=== PATIENT | male | born 1965 | race Caucasian/White ===

== ENCOUNTER → 2018-05-31 16:02 | Emergency (ER) | payer OTHER ==
[~2018-05-31 16:02] MED LIST: Cephalexin CAP* 500 MG PO ONE; HYDROcodone/ACETAMIN 5-325 MG* 1 TAB PO ONE; Ondansetron ODT TAB* 4 MG ONE; Ondansetron ODT TAB* 4 MG PO ONE
--- NOTE | 2018-05-31 18:38 | ED ---
Upper Extremity Pain - HPI Summary HPI Summary: Patient complains of pain, swelling and lacerations to right hand after dropping automotive transmission on it today. Denies any other pain, injury, symptoms. Tetanus status updated 3 years ago with prior hand injury. History of multiple surgeries on right hand with limited use of fingers of right hand. No anti-coagulant. - History of Current Complaint Chief Complaint: EDLacSutureRecheck Stated Complaint: RIGHT HAND LACERATION/SMASHED Time Seen by Provider: 05/31/18 17:37 Hx Obtained From: Patient Mechanism Of Injury: Blunt Trauma Onset/Duration: Started Hours Ago Timing: Constant Severity Initially: Moderate Severity Currently: Moderate Pain Location: Hand, Finger Character: Aching, Throbbing Aggravating Factor(s): Movement Alleviating Factor(s): Rest, Ice Associated Signs & Symptoms: Positive: Swelling - Allergies/Home Medications Allergies/Adverse Reactions: Allergies Allergy/AdvReac Type Severity Reaction Status Date / Time MS Oxycodone [From Oxycontin] Allergy Severe GI Upset, Verified 12/25/15 08:04 SYNCOPE PMH/Surg Hx/FS Hx/Imm Hx Endocrine/Hematology History: Denies: Hx Anticoagulant Therapy GI History: Denies: Hx Jaundice History: Reports: Other Problems/Disorders - 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 Denies: Hx Dialysis Musculoskeletal History: Reports: Other Musculoskeletal History - 2007 BACK SURGERY 3 DISC Sensory History: Reports: Hx Contacts or Glasses - READING GLASSES, Hx Glaucoma - STATES RARE FORM LEFT EYE- NO TREATMENT Denies: Hx Hearing Aid Opthamlomology History: Reports: Hx Contacts or Glasses - READING GLASSES, Hx Glaucoma - STATES RARE FORM LEFT EYE- NO TREATMENT EENT History: Denies: Hx Deafness Neurological History: Denies: Hx Developmental Delay Psychiatric History: Denies: Hx Eating Disorder - Surgical History Surgery Procedure, Year, and Place: 2010 LEFT NEPHRECTOMY (DONATION), STRONG. 2007 BACK SURGERY 3 DISC LUMBAR, WIL. 09/2015 RIGHT HAND SURGERY- [facility] Hx Anesthesia Reactions: No Infectious Disease History: No Infectious Disease History: Denies: Traveled Outside the [place] in Last 30 Days - Family History Known Family History: Positive: Non-Contributory - Social History Occupation: Employed Full-time Alcohol Use: Rare Substance Use Type: Reports: None Smoking Status (MU): Light Every Day Tobacco Smoker Type: Cigars Amount Used/How Often: QUIT CIGARETTES - 1988, BUT STARTING SMOKING CIGARS 2013 Length of Time of Smoking/Using Tobacco: APPROX 21 YEARS FOR CIGARETTES, 2 YEARS FOR CIGARS Have You Smoked in the Last Year: Yes Review of Systems Constitutional: Negative Eyes: Negative ENT: Negative Cardiovascular: Negative Respiratory: Negative Gastrointestinal: Negative Genitourinary: Negative Musculoskeletal: Other Skin: Other Neurological: Negative Psychological: Normal All Other Systems Reviewed And Are Negative: Yes Physical Exam - Summary Physical Exam Summary: Lacerations to proximal portions of proximal phalanx of fourth and fifth digit of right hand. Swelling over the proximal phalanx of third digit and MCP joint of right hand. Extension and flexion intact at each individual joint of all fingers except third digit. Patient has history of surgery on third digit with very limited flexion and extension at each individual joint prior to today's injury. Cap refill immediate on all fingers. Sensation intact. No obvious deformity, erythema, extra warmth noted. Triage Information Reviewed: Yes Vital Signs On Initial Exam: Initial Vitals Temp Pulse Resp BP Pulse Ox 98.6 F 86 18 121/82 97 05/31/18 16:19 05/31/18 16:19 05/31/18 16:19 05/31/18 16:19 05/31/18 16:19 Vital Signs Reviewed: Yes Appearance: Positive: Well-Appearing Skin: Positive: Warm Head/Face: Positive: Normal Head/Face Inspection Eyes: Positive: Normal Neck: Positive: Supple Respiratory/Lung Sounds: Positive: Clear to Auscultation Cardiovascular: Positive: Normal Abdomen Description: Positive: Nontender Musculoskeletal: Positive: Normal Neurological: Positive: Normal Psychiatric: Positive: Normal AVPU Assessment: Alert - [place] Coma Scale Best Eye Response: 4 - Spontaneous Best Motor Response: 6 - Obeys Commands Best Verbal Response: 5 - Oriented Coma Scale Total: 15 Procedures - Laceration/Wound Repair 1 Location: upper extremity Description: Linear Anesthesia: Digital, 2.0%, Lido Length, Depth and Shape: 2cm x .5cm Betadine Prep?: Yes Irrigated w/ Saline (ccs): 500 Laceration/Wound Explored: clean Debridement: minimal Number of Sutures: 3 - 4.0 ethilon Layer Closure?: No Sterile Dressing Applied?: No 2 Location: upper extremity Description: Linear Anesthesia: Digital, 2.0%, Lido Length, Depth and Shape: 2cm x .5cm Betadine Prep?: Yes Irrigated w/ Saline (ccs): 300 Laceration/Wound Explored: clean Debridement: minimal Number of Sutures: 2 - 4.0 ethilon Layer Closure?: No Sterile Dressing Applied?: No Diagnostics - Vital Signs Vital Signs Temp Pulse Resp BP Pulse Ox 05/31/18 16:19 98.6 F 86 18 121/82 97 - Laboratory Lab Statement: Any lab studies that have been ordered have been reviewed, and results considered in the medical decision making process. Course/Dx - Course Course Of Treatment: Patient complains of pain, swelling and lacerations to right hand after dropping automotive transmission on it today. Denies any other pain, injury, symptoms. Tetanus status updated 3 years ago with prior hand injury. History of multiple surgeries on right hand with limited use of fingers of right hand. No anti-coagulant. Physical exam:Lacerations to proximal portions of proximal phalanx of fourth and fifth digit of right hand. Swelling over the proximal phalanx of third digit and MCP joint of right hand. Extension and flexion intact at each individual joint of all fingers except third digit. Patient has history of surgery on third digit with very limited flexion and extension at each individual joint prior to today's injury. Cap refill immediate on all fingers. Sensation intact. No obvious deformity, erythema, extra warmth noted. Finger splint placed over fracture proximal digit third digit of right hand. Lacerations are present fifth digits sutured. Patient started on Keflex 500 mg here in the ED. Rx for same. Follow-up with ortho - Diagnoses Provider Diagnoses: Laceration, Fracture of proximal phalanx of digit of hand Discharge - Sign-Out/Discharge Documenting (check all that apply): Patient Departure - Discharge Plan Condition: Stable Disposition: HOME Prescriptions: Cephalexin CAP* [Keflex CAP*] 500 mg PO TID 7 Days #21 cap HYDROcodone/ACETAMIN 5-325 MG* [[place] 5-325 TAB*] 1 tab PO TID 2 Days #6 tab MDD 3 tabs Patient Education Materials: Care For Your Stitches (ED), Laceration (ED), Finger Fracture (ED), Finger Laceration (ED) Referrals: No Primary Care Phys,NOPCP [Primary Care Provider] - Yesica Medrano MD [Medical Doctor] - Additional Instructions: Sutures out in 10 days. Keep splint on middle finger of right hand until you follow-up with orthopedics Dr. Medrano. Ice and ibuprofen for pain. You may wash hand with warm running water and soap. Do not submerge underwater. Return to the ED for any new or worsening symptoms - Billing Disposition and Condition Condition: STABLE Disposition: Home
[2018-05-31 19:22] VITALS: BP 149/92
== END | disposition home or self-care (01) ==
LOC: ED 16:02
DX: S61.411A Laceration without foreign body of right hand, initial encounter (principal); S62.642A Nondisplaced fracture of proximal phalanx of right middle finger, initial encounter for closed fracture; W24.1XXA Contact with transmission devices, not elsewhere classified, initial encounter; Y92.9 Unspecified place or not applicable; Z88.5 Allergy status to narcotic agent; F17.290 Nicotine dependence, other tobacco product, uncomplicated
CPT/HCPCS: 12002; 99282; A9270-GY